=== PATIENT | male | born 1970 | race Caucasian/White ===

== ENCOUNTER → 2016-04-21 | Outpatient (CLI) | payer OTHER | LOC: LAB 18:35 | DX: Z51.81 Encounter for therapeutic drug level monitoring (principal); Z79.01 Long term (current) use of anticoagulants; Z86.718 Personal history of other venous thrombosis and embolism; I87.001 Postthrombotic syndrome without complications of right lower extremity ==

== ENCOUNTER → 2016-04-25 | Outpatient (CLI) | payer OTHER | LOC: LAB 12:38 | DX: Z51.81 Encounter for therapeutic drug level monitoring (principal); Z79.01 Long term (current) use of anticoagulants; Z86.718 Personal history of other venous thrombosis and embolism; I87.021 Postthrombotic syndrome with inflammation of right lower extremity ==